=== PATIENT | male | born 1985 | race American Indian/Alaskan Native ===

== ENCOUNTER 2017-10-31 23:04 | Emergency (ER) | payer SELFPAY ==
[2017-10-31 23:17] VITALS: BP 97/55
[2017-11-01] MEDS ORDERED: MOTRIN PO ONE (00:21)
--- NOTE | 2017-11-01 00:44 | XRay Report ---
FINAL REPORT EXAM: XR WRIST 3+V RT HISTORY: Right wrist and forearm pain COMPARISON: None available. FINDINGS: Four views of right wrist obtained. Normal alignment of the carpal bones. No significant ulnar variance. Radiocarpal joint space preserved. No acute fracture dislocation. IMPRESSION: No acute bony abnormality.
[2017-11-01] MEDS ORDERED: NORCO 5/325 ONE (02:44)
--- NOTE | 2017-11-01 03:16 | Emergency Department Report ---
ED Upper Extremity Inj HPI - General Chief Complaint: Extremity Injury, Upper Stated Complaint: WRIST/HAND SWELLING Time Seen by Provider: 11/01/17 03:11 Source: patient Mode of arrival: Ambulatory Limitations: No Limitations - History of Present Illness Initial Comments: 32-year-old -[place] male presents to the emergency room for right wrist pain and forearm pain after pushing up with his right hand yesterday. Patient reports that he took a Tylenol PM which she reports did not help much with this pain. Patient works as a [employer] and is often using his hands a lot. Patient has no primary care provider. He has no known drug allergies no past medical history. MD Complaint: Injury to:: right, wrist -: days(s) (2) Other Extremity Injury: Wrist: Right Other Injuries: none Handedness: right Place: home Severity scale (0 -10): 9 Improves With: none Worsens With: movement of extremity Context: other (doing pushups) Associated Symptoms: denies other symptoms Treatments Prior to Arrival: other (acetaminophen with diphenhydramine) - Related Data Previous Rx's Medication Instructions Recorded Last Taken Type Ibuprofen [Motrin 600 MG tab] 600 mg PO Q8H PRN #30 tablet 11/01/17 Unknown Rx Allergies Allergy/AdvReac Type Severity Reaction Status Date / Time No Known Allergies Allergy Unverified 10/31/17 23:58 ED Review of Systems ROS: Stated complaint: WRIST/HAND SWELLING Other details as noted in HPI Comment: All other systems reviewed and negative Musculoskeletal: joint swelling (right wrist), arthralgia (right wrist) ED Past Medical Hx - Past Medical History Previous Medical History?: No - Surgical History Past Surgical History?: No - Social History Smoking Status: Never Smoker Substance Use Type: None - Medications Home Medications: Home Medications Medication Instructions Recorded Confirmed Last Taken Type Ibuprofen [Motrin 600 MG tab] 600 mg PO Q8H PRN #30 tablet 11/01/17 Unknown Rx ED Physical Exam - General Limitations: No Limitations General appearance: alert, in no apparent distress - Head Head exam: Present: atraumatic, normocephalic - Eye Eye exam: Present: EOMI - ENT ENT exam: Present: mucous membranes moist - Expanded Upper Extremity Exam Right Shoulder Exam: Present: normal inspection, full ROM. Absent: tenderness, swelling Upper Arm exam: Present: normal inspection, full ROM. Absent: tenderness, swelling Elbow exam: Present: full ROM. Absent: tenderness, swelling Forearm Wrist exam: Present: full ROM, tenderness (distal forearm), swelling ( distal forearm). Absent: deformity Hand Wrist exam: Present: tenderness, swelling. Absent: laceration, ecchymosis , deformity, erythema Neuro motor exam: Present: wrist extension intact, thumb opposition intact, thumb IP flexion intact, thumb adduction intact, fingers 2-5 abduction intact Neurosensory exam: Present: radial nerve intact, ulnar nerve intact, median nerve intact Vascular: Present: vascular compromise ED Course Vital Signs 10/31/17 23:16 Temperature 98.8 F Pulse Rate 83 Respiratory 18 Rate Blood Pressure 97/55 O2 Sat by Pulse 97 Oximetry ED Medical Decision Making - Radiology Data Radiology results: report reviewed, image reviewed FINAL REPORT EXAM: XR WRIST 3+V RT HISTORY: Right wrist and forearm pain COMPARISON: None available. FINDINGS: Four views of right wrist obtained. Normal alignment of the carpal bones. No significant ulnar variance. Radiocarpal joint space preserved. No acute fracture dislocation. IMPRESSION: No acute bony abnormality. Transcribed By: LMA Dictated By: CAROLE SIERRA MD Electronically Authenticated By: CAROLE SIERRA MD Signed Date/Time: 11/01/1742 DD/ TD/TT: 11/01/1742 - Medical Decision Making Patient has been evaluated by this provider fast track. Patient has been given [place] 5/325 for pain management. X-ray of right wrist shows patient has no fractures or dislocations. Ordered a volar wrist splint for comfort. Discussed the patient to take ibuprofen 600 mg when necessary for pain. Discussed with patient if symptoms persist or gets worse to follow-up with orthopedist. Patient verbalized understanding Critical care attestation.: If time is entered above; I have spent that time in minutes in the direct care of this critically ill patient, excluding procedure time. ED Disposition Clinical Impression: Sprain of wrist, right Qualifiers: Encounter type: initial encounter Qualified Code(s): S63.501A - Unspecified sprain of right wrist, initial encounter Disposition: TO HOME OR SELFCARE Is pt being admited?: No Does the pt Need Aspirin: No Condition: Stable Instructions: Wrist Sprain (ED) Additional Instructions: Shah pain medication as prescribed. If her symptoms persist or gets worse please follow-up with orthopedic provider. Prescriptions: Ibuprofen [Motrin 600 MG tab] 600 mg PO Q8H PRN #30 tablet PRN Reason: Pain Referrals: PRIMARY CAREMD [Primary Care Provider] - 3-5 Days SHERYL DYE MD [Staff Physician] - 3-5 Days Forms: Work/School Release Form(ED)
== END 2017-11-01 03:33 | disposition home or self-care (01) ==
LOC: ED 23:04
DX: S63.501A Unspecified sprain of right wrist, initial encounter (principal); X50.1XXA Overexertion from prolonged static or awkward postures, initial encounter; Y93.B2 Activity, push-ups, pull-ups, sit-ups; Y92.009 Unspecified place in unspecified non-institutional (private) residence as the place of occurrence of the external cause; Y99.8 Other external cause status
CPT/HCPCS: 99283